=== PATIENT | male | born 1955 | race Caucasian/White ===

== ENCOUNTER 2016-07-19 07:03 | Emergency (ER) | payer MEDICAID ==
[~2016-07-19] VITALS: Ht 190.5 cm; Wt 86.2 kg
[~2016-07-19 07:03] MED LIST: ATEN50TA PO; HCTZ25T PO
[2016-07-19] MEDS ORDERED: LORazepam 2MG/ML-1ML VIAL IV ONE (07:45)
[2016-07-19 08:04] LABS: Basophils # (auto) 0 uL; Eosinophils # (auto) 0.2 uL; Monocytes # (auto) 0.7 uL; Neutrophils # (auto) 2.5 uL; SUSPECT VIEW TRANSMISSION; White Blood Cell 4.3 10^3/uL (4.4-10.8)
[2016-07-19 08:14] LABS: Basophils % (auto) 0.4 % (0.0-2.0); Hematocrit 42.1 % (41.0-53.0); Hemoglobin 14.5 g/dL (13.5-17.5); Lymphocytes # (auto) 0.9 uL; Lymphocytes % (auto) 20.2 % (10.0-50.0); Mean Corpuscular Hemoglobin 34.8 pg (28.0-32.0); Mean Corpuscular Hgb Conc. 34.5 g/dL (32.0-36.0); Mean Corpuscular Volume 100.8 fL (80.0-100.0); Mean Platelet Volume 8.3 fL (7.4-10.4); Neutrophils % (auto) 59.4 % (37.0-80.0); Platelet Count (auto) 190 10^3/uL (140-450); Red Cell Distribution Width 14.1 % (11.6-16.0)
[2016-07-19] MEDS ORDERED: THIAMINE INJ 100 MG, MULTIPLE VITAMIN 10 ML, FOLIC ACID 1 MG, MAGNESIUM SULF SDV 50% 8 ... IV ONE ×5 (08:30)
[2016-07-19 08:32] LABS: Albumin 3.5 g/dL (3.4-5.0); Anion Gap 11 (5-15); BUN/Creatinine Ratio 9.3; Blood Urea Nitrogen 12 mg/dL (7-18); Calcium 8.7 mg/dL (8.5-10.1); Carbon Dioxide 24 mmol/L (21-32); Chloride 99 mmol/L (98-107); GFR African American 73 mL/min; GFR Non-African American 60 mL/min; Glucose 121 mg/dL (74-106); Potassium 3.2 mmol/L (3.5-5.1); Sodium 134 mmol/L (136-145)
[2016-07-19 08:58] LABS: Alkaline Phosphatase 52 U/L (45-117); Aspartate Aminotransferase 222 U/L (15-37); Bilirubin, Total 1.9 mg/dL (0.2-1.0); Total Protein 7.8 g/dL (6.4-8.2)
[2016-07-19 09:55] VITALS: BP 135/99
== END 2016-07-19 10:01 | disposition home or self-care (01) ==
LOC: ER 07:03
DX: F10.239 Alcohol dependence with withdrawal, unspecified (principal); I10 Essential (primary) hypertension; F17.210 Nicotine dependence, cigarettes, uncomplicated; Y90.9 Presence of alcohol in blood, level not specified
CPT/HCPCS: 36415; 80053; 80320; 85025; 94761; 96365; 96375; 99284; J2060; J3411; J3475; J7030

== ENCOUNTER 2017-02-21 10:32 | Emergency (ER) | payer MEDICAID ==
[~2017-02-21] VITALS: Ht 193 cm; Wt 89.4 kg
[2017-02-21 11:42] VITALS: BP 129/94
[2017-02-21] MEDS ORDERED: KETOROLAC TROMETH 60MG/2ML VIAL IM ONE (12:00)
== END 2017-02-21 13:25 | disposition home or self-care (01) ==
LOC: ER 10:32
DX: M50.30 Other cervical disc degeneration, unspecified cervical region (principal); J20.9 Acute bronchitis, unspecified; I10 Essential (primary) hypertension; F17.210 Nicotine dependence, cigarettes, uncomplicated
CPT/HCPCS: 72040; 96372; 99284; J1885

== ENCOUNTER 2017-05-28 10:27 | Emergency (ER) | payer MEDICAID ==
[~2017-05-28] VITALS: Ht 190.5 cm; Wt 92.5 kg
[2017-05-28 10:38] VITALS: BP 137/90
== END 2017-05-28 12:43 | disposition home or self-care (01) ==
LOC: ER 10:27
DX: S63.502A Unspecified sprain of left wrist, initial encounter (principal); I10 Essential (primary) hypertension; F17.210 Nicotine dependence, cigarettes, uncomplicated; W18.39XA Other fall on same level, initial encounter; Y93.89 Activity, other specified; Y92.89 Other specified places as the place of occurrence of the external cause; Y99.8 Other external cause status
CPT/HCPCS: 73110; 73120

== ENCOUNTER 2018-05-23 13:42 | Emergency (ER) | payer MEDICAID ==
[~2018-05-23] VITALS: Ht 185.4 cm; Wt 87.5 kg
[2018-05-23 14:19] VITALS: BP 146/82
[2018-05-23 15:38] LABS: Basophils # (auto) 0 uL; Basophils % (auto) 0.5 % (0.0-2.0); Eosinophils # (auto) 0.5 uL; Eosinophils % (auto) 5.7 % (0.0-7.0); Hematocrit 41.8 % (41.0-53.0); Hemoglobin 14.5 g/dL (13.5-17.5); Lymphocytes # (auto) 1.5 uL; Lymphocytes % (auto) 18.6 % (10.0-50.0); Mean Corpuscular Hemoglobin 33.6 pg (28.0-32.0); Mean Corpuscular Hgb Conc. 34.6 g/dL (32.0-36.0); Monocytes # (auto) 0.9 uL; Monocytes % (auto) 11.7 % (0.0-12.0); Neutrophils % (auto) 63.5 % (37.0-80.0); Nucleated Red Blood Cells % 0.1 %; Platelet Count (auto) 253 10^3/uL (140-450); Red Blood Cells 4.31 10^6/uL (4.5-5.90); White Blood Cell 7.9 10^3/uL (4.4-10.8)
[2018-05-23 15:54] LABS: Albumin 3.7 g/dL (3.4-5.0); Calcium 8.7 mg/dL (8.5-10.1); Potassium 4.9 mmol/L (3.5-5.1)
[2018-05-23 15:59] LABS: BUN/Creatinine Ratio 9.4; Bilirubin, Total 0.4 mg/dL (0.2-1.0)
== END 2018-05-23 19:09 | disposition left against medical advice (07) ==
LOC: ER 13:42
DX: S50.861A Insect bite (nonvenomous) of right forearm, initial encounter (principal); Z53.21 Procedure and treatment not carried out due to patient leaving prior to being seen by health care provider; W57.XXXA Bitten or stung by nonvenomous insect and other nonvenomous arthropods, initial encounter; Y93.89 Activity, other specified; Y92.89 Other specified places as the place of occurrence of the external cause; Y99.8 Other external cause status
CPT/HCPCS: 36415; 80053; 85025

== ENCOUNTER 2024-01-14 14:20 | Emergency (ER) | payer OTHER, MEDICAID ==
[~2024-01-14] VITALS: Ht 190.5 cm; Wt 82.7 kg
[~2024-01-14 14:20] MED LIST changes: -HCTZ25T PO; +HYDR25TA5 PO
[2024-01-14 15:49] LABS: Urine Bacteria None Seen /hpf (None Seen)
[2024-01-14 16:02] LABS: Urine Blood Negative /uL (Negative); Urine Clarity Clear (Clear); Urine Color Yellow (Yellow); Urine Hyaline Cast FEW /lpf (0 - 2); Urine Protein, UAD Negative (Negative); Urine Specific Gravity 1.015 (1.001-1.035); Urine Urobilinogen Normal (Negative); Urine WBC <1 /hpf (0 - 3); Urine pH 5.5 (5.0-9.0)
[2024-01-14 17:16] LABS: Basophils # (auto) 0 10 ^3/uL (0-0.2); Basophils % (auto) 0.9 % (0.0-2.0); Eosinophils # (auto) 0.2 10 ^3/uL (0-0.8); Eosinophils % (auto) 4.5 % (0.0-7.0); Hematocrit 39.2 % (41.0-53.0); Hemoglobin 13.4 g/dL (13.5-17.5); Lymphocytes # (auto) 0.9 10 ^3/uL (0.4-5.4); Mean Corpuscular Hemoglobin 33.9 pg (28.0-32.0); Mean Corpuscular Hgb Conc. 34.2 g/dL (32.0-36.0); Mean Corpuscular Volume 99.2 fL (80.0-100.0); Monocytes # (auto) 0.6 10 ^3/uL (0-1.3); Monocytes % (auto) 10.7 % (0.0-12.0); Neutrophils # (auto) 3.7 10 ^3/uL (1.6-8.6); Neutrophils % (auto) 66.9 % (37.0-80.0); Nucleated Red Blood Cells % 0.2 %; Platelet Count (auto) 208 10^3/uL (140-450); Red Blood Cells 3.95 10^6/uL (4.5-5.90); Red Cell Distribution Width 13.9 % (11.8-14.3); White Blood Cell 5.5 10^3/uL (4.4-10.8)
[2024-01-14 17:34] LABS: Alanine Aminotransferase 20 U/L (7-40); Albumin 4.6 g/dL (3.2-4.8); Alkaline Phosphatase 81 U/L (46-116); Anion Gap 6 (5-15); Aspartate Aminotransferase 18 U/L (13-40); BUN/Creatinine Ratio 11.8 (10.0-20.0); Blood Urea Nitrogen 18 mg/dL (9-23); Calcium 9.7 mg/dL (8.7-10.4); Carbon Dioxide 25 mmol/L (20-31); Chloride 107 mmol/L (98-107); Glucose 89 mg/dL (74-106); Potassium 4.4 mmol/L (3.5-5.1); Sodium 138 mmol/L (136-145)
[2024-01-14 17:35] LABS: Bilirubin, Total 0.4 mg/dL (0.2-1.0); Total Protein 7.1 g/dL (5.7-8.2)
[2024-01-14] MEDS: SODIUM CHLORIDE 0.9% 1,000 ML IV ONE (20:14)
[2024-01-14] MEDS: HYDROcodone-ACET 5/325MG TAB PO ONE (20:19)
[2024-01-14 20:20] VITALS: BP 149/71; PULSE 57; RESP 19; TEMP 97.7; O2SAT 98
== END 2024-01-14 21:11 | disposition home or self-care (01) ==
LOC: ER 14:20
DX: M54.9 Dorsalgia, unspecified (principal); I10 Essential (primary) hypertension; J45.909 Unspecified asthma, uncomplicated; E07.9 Disorder of thyroid, unspecified; F32.9 Major depressive disorder, single episode, unspecified; F17.210 Nicotine dependence, cigarettes, uncomplicated; F10.90 Alcohol use, unspecified, uncomplicated; Z79.899 Other long term (current) drug therapy; Y90.0 Blood alcohol level of less than 20 mg/100 ml
CPT/HCPCS: 36415; 74176; 80053; 81001; 83605; 85025; 87086; 96360; 99284; J7030